=== PATIENT | male | born 1935 | race Hispanic/Latino ===

== ENCOUNTER 2018-10-17 09:42 | Inpatient (IN) | payer MEDICARE, OTHER ==
[~2018-10-17] VITALS: Ht 175.3 cm; Wt 112.2 kg
[2018-10-17] MEDS ORDERED: SODIUM CHLORIDE 0.9% 1000ML 1,000 ML IV STA (09:45)
[2018-10-17 10:57] LABS: BASOPHILS % 0.4 % (0.0-1.0); EOSINOPHILS # (AUTO) 0.3 (0.0-0.4); EOSINOPHILS % 3.5 % (0.0-6.0); HEMATOCRIT 37.8 % (38.2-49.6); HEMOGLOBIN 13.2 g/dL (14.0-18.0); LYMPHOCYTES # (AUTO) 1.4 (1.0-3.2); LYMPHOCYTES % 16.4 % (18.0-39.1); MEAN CORPUSCULAR HEMOGLOBIN 34.4 pg (28-32); MEAN CORPUSCULAR HGB CONC 34.9 g/dL (31-35); MEAN CORPUSCULAR VOLUME 98.4 fL (81-99); MONOCYTES # (AUTO) 0.6 (0.2-0.8); MONOCYTES % 7.6 % (4.4-11.3); NEUTROPHILS % 71.7 % (38.7-80.0); PLATELET COUNT 177 x10e3/uL (140-360); RED BLOOD COUNT 3.84 x10e6/uL (4.3-5.7); RED CELL DISTRIBUTION WIDTH 12.1 % (11.7-14.4)
[2018-10-17 11:08] LABS: INR 0.96; PROTHROMBIN TIME 13.7 seconds (11.9-14.5)
[2018-10-17 11:09] LABS: PARTIAL THROMBOPLASTIN TIME 29.7 seconds (23.8-35.5)
[2018-10-17 11:18] LABS: ALBUMIN 3.4 g/dL (3.5-5.0); ALBUMIN/GLOBULIN RATIO 0.9 (0.8-2.0); ANION GAP 14.2 mmol/L (8-16); CALCIUM 9.1 mg/dL (8.4-10.2); CREATININE, SERUM 1.43 mg/dL (0.72-1.25); POTASSIUM 4.2 mmol/L (3.5-5.1)
[2018-10-17 11:21] LABS: CLARITY,URINE CLOUDY (CLEAR); COLOR,URINE RED (YELLOW); KETONES,URINE NEGATIVE (NEGATIVE); LEUKOCYTE ESTERASE ,URINE TRACE (NEGATIVE); NITRITE,URINE NEGATIVE (NEGATIVE); PROTEIN,URINE DIPSTICK 2+ (NEGATIVE)
[2018-10-17 11:22] LABS: BILIRUBIN,URINE NEGATIVE (NEGATIVE); URINE UROBILINOGEN 0.2 mg/dL (0.2 - 1)
[2018-10-17 11:41] LABS: RBC,URINE >50 /HPF (0-5); WBC,URINE (MAN) 0-5 /HPF (0-5)
[2018-10-17 11:42] LABS: EPITHELIAL CELLS,URINE RARE /LPF
[2018-10-17] MEDS ORDERED: SERTRALINE HCL50 MG PO (13:44)
[2018-10-17] MEDS ORDERED: CARVEDILOL25 MG PO (13:44)
[2018-10-17] MEDS ORDERED: FUROSEMIDE20 MG PO (13:44)
[2018-10-17] MEDS ORDERED: LEVOTHYROXINE175 MCG PO (13:44)
[2018-10-17] MEDS ORDERED: POTASSIUM CHLO20 ME1 PO (13:44)
[2018-10-17] MEDS ORDERED: FLUTICASONE PRO16 GM (13:44)
[2018-10-17] MEDS ORDERED: DONEPEZIL HCL10 MG PO (13:44)
[2018-10-17] MEDS ORDERED: PRAVASTATIN SOD40 MG PO (13:44)
[2018-10-17] MEDS ORDERED: AMLODIPINE BESYL5 MG PO (13:44)
[2018-10-17] MEDS ORDERED: TAMSULOSIN HCL0.4 MG PO (13:44)
[2018-10-17] MEDS ORDERED: ALPRAZOLAM0.25 MG PO (13:44)
[2018-10-17] MEDS ORDERED: ONDANSETRON HCL INJ 2 MG/ML VIAL IV PRN (13:45)
[2018-10-17] MEDS ORDERED: MORPHINE SULFATE 2 MG/ML SYR IV PRN (13:45)
[2018-10-17] MEDS ORDERED: CLOBETASOL PROP50 ML TOP (13:46)
[2018-10-17] MEDS ORDERED: MYRBETRIQ50 MG PO (13:46)
[2018-10-17] MEDS ORDERED: MEMANTINE PO (13:46)
[2018-10-17 19:20] VITALS: BP_SYST 136
[2018-10-17 19:54] LABS: CALCIUM 9.3 mg/dL (8.4-10.2); CREATININE, SERUM 1.38 mg/dL (0.72-1.25)
[2018-10-17] MEDS: ALPRAZOLAM 0.25 MG TAB PO SCH (21:00)
[2018-10-17 21:10] VITALS: BP 163/70
[2018-10-17 21:25] VITALS: BP 163/70
[2018-10-17] MEDS ORDERED: COLACE100 MG PO (21:38)
[2018-10-17] MEDS ORDERED: ACETAMINOPHEN325 M1 PO (21:38)
[2018-10-17] MEDS ORDERED: BUDESONIDE0.5 MG/2 M NEB (21:38)
[2018-10-17] MEDS ORDERED: COMBIVENT RESPIM4 GM IH (21:38)
[2018-10-17] MEDS ORDERED: IPRATROPIU0.2 MG/1 M NS (21:38)
[2018-10-17 23:48] VITALS: BP 161/70
[2018-10-18] VITALS (8 sets, daily range): BP systolic 110–150; BP diastolic 54–72
[2018-10-18] MEDS ORDERED: ACETAMINOPHEN 325 MG TAB PO PRN
[2018-10-18] MEDS ORDERED: DOCUSATE SODIUM 100 MG CAP PO PRN
[2018-10-18 05:56] LABS: BASOPHILS % 0.3 % (0.0-1.0); EOSINOPHILS # (AUTO) 0.3 (0.0-0.4); EOSINOPHILS % 3.4 % (0.0-6.0); HEMATOCRIT 32.9 % (38.2-49.6); HEMOGLOBIN 11.5 g/dL (14.0-18.0); LYMPHOCYTES # (AUTO) 1.3 (1.0-3.2); MEAN CORPUSCULAR HEMOGLOBIN 34.2 pg (28-32); MEAN CORPUSCULAR VOLUME 97.9 fL (81-99); MONOCYTES # (AUTO) 0.6 (0.2-0.8); MONOCYTES % 8.1 % (4.4-11.3); NEUTROPHILS # (AUTO) 5.6 (2.1-6.9); NEUTROPHILS % 70.7 % (38.7-80.0); PLATELET COUNT 171 x10e3/uL (140-360); RED BLOOD COUNT 3.36 x10e6/uL (4.3-5.7); RED CELL DISTRIBUTION WIDTH 12.1 % (11.7-14.4)
[2018-10-18 06:05] LABS: INR 1.02; PROTHROMBIN TIME 14.3 seconds (11.9-14.5)
[2018-10-18 06:06] LABS: PARTIAL THROMBOPLASTIN TIME 31.6 seconds (23.8-35.5)
[2018-10-18 06:18] LABS: ALBUMIN 2.8 g/dL (3.5-5.0); ALBUMIN/GLOBULIN RATIO 0.7 (0.8-2.0); ANION GAP 10.9 mmol/L (8-16); CALCIUM 8.9 mg/dL (8.4-10.2); CREATININE, SERUM 1.31 mg/dL (0.72-1.25); POTASSIUM 3.9 mmol/L (3.5-5.1)
[2018-10-18] MEDS: AMLODIPINE BESYLATE 5 MG TAB PO SCH (09:18)
[2018-10-18] MEDS: FUROSEMIDE 20 MG TAB PO SCH (09:18)
[2018-10-18] MEDS: FLUTICASONE PROPIONATE NASAL SPRAY NS SCH (10:42)
[2018-10-18] MEDS: HYDROCODONE/APAP 5MG-325MG TAB PO PRN ×2 (11:00→23:16)
[2018-10-18] MEDS: SERTRALINE HCL 50 MG TAB PO SCH (11:26)
[2018-10-18] MEDS: BUDESONIDE 0.5MG/2 ML NEB NEB SCH ×3 (11:30→20:15)
--- NOTE | 2018-10-18 15:29 | Consultation ---
DATE OF CONSULTATION: October 17, 2018 PULMONARY CONSULTATION HISTORY OF PRESENT ILLNESS: Mr. Rojo is an office patient of the [facility] with a history of obstructive sleep apnea and tracheomalacia, who was last seen in the office about a month ago for followup and also had some conjunctivitis and was treated with topical erythromycin and is doing better. He was in his usual state of health and planned to follow up in the office next week; however, he began Wednesday night with hematuria. He denies any pain. He denies any shortness of breath. He denies any new cough, sputum or secretions. Normally he uses a CPAP 12 cm of water for sleep and p.r.n. He also uses nebulized budesonide and DuoNeb. At this point he denies any other pains. REVIEW OF SYSTEMS: Notable for swelling of the lower extremities. PAST MEDICAL HISTORY: Includes pneumonias in the past, hypertension, tracheomalacia, hypothyroidism, sleep apnea, osteoporosis, Alzheimer's dementia, dysphagia, gastroesophageal reflux, prostate cancer. FAMILY HISTORY: Noncontributory. SOCIAL HISTORY: He used to smoke. He lives with his son, who is his director of housing. DRUG ALLERGIES: NONE. PHYSICAL EXAMINATION VITAL SIGNS: Temperature is 97.2. Heart rate is 58. Blood pressure 110/54. He is 94% on room air. GENERAL APPEARANCE: This is an obese man sitting in the wheelchair. He is awake, alert. He is pleasant. HEENT: His head is normocephalic. His mucous membranes are moist. NECK: Short and thick. CHEST: Clear to auscultation. HEART: Has a regular rate and rhythm without murmurs, rubs or gallops. ABDOMEN: Mildly obese. It is soft. It is nontender, nondistended. There is no flank pain. He does have a Mortensen catheter with hematuria. EXTREMITIES: Have trace edema. LABORATORY DATA: Last labs notable for a creatinine of 1.31. White count is 7.89. Hemoglobin and hematocrit are 11 and 32 with 171,000 platelets. Coags are normal. LFTs are normal. ASSESSMENT 1. Obstructive sleep apnea. 2. Tracheobronchial malacia. 3. Chronic obstructive pulmonary disease. 4. Hematuria. 5. Lower extremity edema. 6. Dementia. RECOMMENDATIONS AND PLAN: He can use his home CPAP at night for sleep and p.r.n. If it is unavailable, he uses 12 cm of water pressure. This has been ordered in the computer. I have also spoken at length with his son, Raul, to bring his machine. He states he is able to bring it. We will continue his nebulized bronchodilators with Pulmicort and DuoNeb. He can use an Acapella as needed for airway clearance. Continue ambulation since he is not a candidate for DVT chemoprophylaxis secondary to hematuria. We will also get bilateral lower extremity venous Dopplers since the swelling is new. He has a urologic consultation pending. It is likely he is going to need cystoscopy. At this point, he may proceed with cystoscopy from a pulmonary point of view. He does need to be recovered with a CPAP due to the tracheomalacia and sleep apnea. The patient was seen, examined and discussed with the nurse and family. Job#: [id number] EV
[2018-10-18] MEDS ORDERED: NON-FORMULARY MEDICATION (Pravastatin Sodium 1 TAB) PO SCH (17:00)
[2018-10-18] MEDS: CARVEDILOL 12.5 MG TAB PO SCH (17:00)
[2018-10-18] MEDS: (Mirabegron (Myrbetriq) 1 TAB) PO SCH (17:00)
[2018-10-18] MEDS ORDERED: NON-FORMULARY MEDICATION (Carvedilol 25 MG) PO SCH (17:00)
[2018-10-18] MEDS: TAMSULOSIN HCL 0.4 MG CAP PO SCH (17:56)
[2018-10-18] MEDS ORDERED: BUDESONIDE 0.5MG/2 ML NEB INH SCH (19:00)
[2018-10-18] MEDS: ALBUTEROL/IPRATROPIUM 3 ML NEB NEB SCH (20:15)
[2018-10-18] MEDS ORDERED: BELLADONNA/OPIUM 60 MG SUPP PR PRN (20:15)
[2018-10-18] MEDS: CLOBETASOL PROPIONATE TOP SCH (21:00)
[2018-10-18] MEDS: CEFTRIAXONE SOD 1 GM VIAL IV SCH (21:39)
[2018-10-18] MEDS: ALPRAZOLAM 0.25 MG TAB PO SCH (21:40)
[2018-10-18] MEDS: DONEPEZIL HCL 5 MG TAB PO SCH (21:40)
[2018-10-18] MEDS: PRAVASTATIN 20 MG TAB PO SCH (21:40)
[2018-10-18 21:47] LABS: BILIRUBIN,URINE NEGATIVE (NEGATIVE); CLARITY,URINE SL CLOUDY (CLEAR); COLOR,URINE YELLOW (YELLOW); KETONES,URINE NEGATIVE (NEGATIVE); LEUKOCYTE ESTERASE ,URINE 2+ (NEGATIVE); NITRITE,URINE NEGATIVE (NEGATIVE); PROTEIN,URINE DIPSTICK 2+ (NEGATIVE); URINE UROBILINOGEN 0.2 mg/dL (0.2 - 1)
[2018-10-18 21:51] LABS: BACTERIA,URINE FEW /HPF; RBC,URINE >50 /HPF (0-5)
[2018-10-19] VITALS (8 sets, daily range): BP systolic 116–168; BP diastolic 50–70
[2018-10-19] MEDS: ALBUTEROL/IPRATROPIUM 3 ML NEB NEB SCH ×4 (01:20→19:56)
[2018-10-19 05:58] LABS: BASOPHILS % 0.4 % (0.0-1.0); EOSINOPHILS # (AUTO) 0.3 (0.0-0.4); EOSINOPHILS % 4.3 % (0.0-6.0); HEMATOCRIT 33.9 % (38.2-49.6); HEMOGLOBIN 11.4 g/dL (14.0-18.0); LYMPHOCYTES # (AUTO) 1.1 (1.0-3.2); LYMPHOCYTES % 15.4 % (18.0-39.1); MEAN CORPUSCULAR HEMOGLOBIN 33.1 pg (28-32); MEAN CORPUSCULAR HGB CONC 33.6 g/dL (31-35); MEAN CORPUSCULAR VOLUME 98.5 fL (81-99); MONOCYTES # (AUTO) 0.6 (0.2-0.8); NEUTROPHILS # (AUTO) 4.9 (2.1-6.9); NEUTROPHILS % 70.3 % (38.7-80.0); PLATELET COUNT 164 x10e3/uL (140-360); RED BLOOD COUNT 3.44 x10e6/uL (4.3-5.7); RED CELL DISTRIBUTION WIDTH 11.9 % (11.7-14.4)
[2018-10-19] MEDS: LEVOTHYROXINE SODIUM 100 MCG TAB PO SCH (06:00)
[2018-10-19] MEDS: LEVOTHYROXINE SODIUM 75 MCG TAB PO SCH (06:00)
[2018-10-19 06:15] LABS: CALCIUM 8.5 mg/dL (8.4-10.2); CREATININE, SERUM 1.5 mg/dL (0.72-1.25)
[2018-10-19] MEDS: BUDESONIDE 0.5MG/2 ML NEB NEB SCH ×2 (07:00→19:56)
--- NOTE | 2018-10-19 08:57 | Progress Note ---
DATE: October 19, 2018 Mr. Rojo is an 83-year-old man with a history of dementia, hypertension, prostate cancer, hypothyroidism, tracheomalacia, came to the emergency room complaining of gross hematuria and some urinary incontinence. He was seen by urologist. He is going to go for cystoscopy today. PHYSICAL EXAMINATION GENERAL: He is awake and alert. VITALS: Temperature is 98.2, blood pressure 129/50. HEART: Regular rate. LUNGS: Poor inspiratory effort. ABDOMEN: Distended and soft. BLOOD WORK: Potassium 4, creatinine is 1.5, glucose 116. White count 7.01, hemoglobin 11.4, hematocrit 33.9. Doppler of the lower extremities apparently so far has been negative as per preliminary report. ASSESSMENT AND PLAN 1. Hematuria. 2. History of prostate cancer. 3. Hypertension. 4. Dementia. 5. Cerebrovascular accident. 6. Tracheomalacia. 7. Sleep apnea. 8. CPAP dependence. PLAN: At the present time, is to continue neb treatments. Continue treating hypertension. Continue all the other home medications. The patient is going to go for cystoscopy today. The urine culture is still pending. Will continue with IV Rocephin 1 g every 24 hours. All of this was discussed with the patient. All questions were answered to satisfaction. Job#: [id number] CHANELL
[2018-10-19] MEDS ORDERED: NON-FORMULARY MEDICATION (Donepezil Hcl 10 MG) PO SCH (09:00)
[2018-10-19] MEDS: CARVEDILOL 12.5 MG TAB PO SCH ×2 (09:00→15:47)
[2018-10-19] MEDS ORDERED: ALPRAZOLAM 0.25 MG TAB PO SCH (09:00)
[2018-10-19] MEDS ORDERED: NON-FORMULARY MEDICATION (Levothyroxine Sodium 175 MCG) PO SCH (09:00)
--- NOTE | 2018-10-19 11:41 | Diagnostic Imaging Report ---
CT Abdomen and Pelvis without contrast INDICATION: Lower abdominal pain for several days, history of prostate cancer TECHNIQUE: Thin collimation axial images obtained from the diaphragm to the level of the pubic symphysis without nonionic intravenous contrast. Dose reduction techniques used: Automated exposure control, adjustment of the mAs and/or kVp according to patient size, standardized low-dose protocol, and/or iterative reconstruction technique. RADIATION DOSE: Total DLP: 776.7 mGy*cm Estimated effective dose: (DLP x 0.015 x size factor) mSv CTDIvol has been reviewed. It is below the limits set by the Radiation Protocol Committee (RPC). COMPARISON: None. ABDOMEN FINDINGS: Lung Bases: The lungs are diffusely hyperinflated. There is atelectasis in the posterior costophrenic angles. No pleural effusions. There is prominence of the epicardial fat pads. The heart is normal in size and contains calcifications of the aorta, mitral valve, and coronary arteries. Liver: Diffusely decreased attenuation without mass. Gallbladder: Present and appears normal. No ductal dilatation. Pancreas: Diffuse fatty atrophy. No mass or ductal dilatation. Spleen: Normal size without mass. Adrenal Glands: No evidence for mass. Kidneys: Right: No renal calculus. Low attenuating lesion in the upper pole measures 14 mm and 4 Hounsfield units consistent with a cyst. Low attenuating lesion in the lower pole measures 1.1 x 1.3 cm. There is suggestion of peripheral calcifications. No hydronephrosis. Left: No renal calculus. There is fullness of the upper pole collecting system suggestive of parapelvic cyst. This measures 1.7 x 1.7 cm. No collecting system dilatation. Lymph Nodes: No enlarged abdominal or retroperitoneal lymph nodes. Aorta: Diffusely calcified and mildly ectatic. Maximum aortic diameter is 2.3 cm. PELVIS FINDINGS: Bowel: Stomach: Collapsed but otherwise normal.. Small Bowel: Normal in caliber with normal wall thickness. Large Bowel: Diverticulosis coli. No associated inflammation. Appendix: Not visualized and may be absent or collapsed. Bladder: Collapsed around a Mortensen catheter. The herndon are diffusely thickened. Diffuse perivesicular inflammation with inflammation extending to the anterior abdominal wall. No evidence of air or associated fluid collection. Ureters: No ureteral dilatation or calculus. No free fluid or fluid collection.. Bones: Mild to moderate degenerative changes of the lower thoracic and lower lumbar spine. No compression deformity or listhesis. No destructive lesions. Soft tissues: Unremarkable. IMPRESSION: 1. Suspected parapelvic cyst in the upper pole of the left kidney. Recommend confirmation with renal ultrasound. Renal ultrasound can also confirm the presence of mural calcifications in a lower pole cyst in the right kidney. No evidence of renal calculus or obstructive uropathy. 2. Circumferential bladder wall thickening or perivesicular inflammation. Please correlate for signs/symptoms of cystitis. Tumor invasion by prostate cancer cannot be excluded on this unenhanced examination. 3. Diverticulosis coli. No evidence for bowel obstruction or inflammation. 4. Steatosis. Signed by: Dr. Marcelo Perez MD on 10/19/2018 11:37 AM
[2018-10-19] MEDS ORDERED: BELLADONNA/OPIUM 60 MG SUPP PR ONE (12:18)
[2018-10-19] MEDS ORDERED: IOPAMIDOL 610MG/1ML 300 MG/ML VIAL IV ONE (12:19)
[2018-10-19] MEDS: FLUTICASONE PROPIONATE NASAL SPRAY NS SCH (15:45)
[2018-10-19] MEDS: MEMANTINE 28 MG PO SCH (15:45)
[2018-10-19] MEDS: POTASSIUM CHLORIDE 20 MEQ TAB CR PO SCH (15:46)
[2018-10-19] MEDS: FUROSEMIDE 20 MG TAB PO SCH (15:46)
[2018-10-19] MEDS: AMLODIPINE BESYLATE 5 MG TAB PO SCH (15:46)
[2018-10-19] MEDS: SERTRALINE HCL 50 MG TAB PO SCH (15:47)
[2018-10-19] MEDS: (Mirabegron (Myrbetriq) 1 TAB) PO SCH (17:35)
[2018-10-19] MEDS: TAMSULOSIN HCL 0.4 MG CAP PO SCH (17:35)
[2018-10-19] MEDS: HYDROCODONE/APAP 5MG-325MG TAB PO PRN (17:45)
[2018-10-19] MEDS ORDERED: ONDANSETRON HCL INJ 2 MG/ML VIAL ONE (17:46)
[2018-10-19] MEDS ORDERED: DEXAMETHASONE SOD PHOS INJ 4 MG/ML VIAL ONE (17:46)
[2018-10-19] MEDS ORDERED: PROPOFOL IV EMULSION 10 MG/ML 20 ML VIAL ONE (17:46)
[2018-10-19] MEDS ORDERED: FENTANYL CITRATE/PF 100MCG/2 ML INJ ONE (17:50)
[2018-10-19] MEDS: CLOBETASOL PROPIONATE TOP SCH (20:42)
[2018-10-19] MEDS: PRAVASTATIN 20 MG TAB PO SCH (20:42)
[2018-10-19] MEDS: DONEPEZIL HCL 5 MG TAB PO SCH (20:42)
[2018-10-19] MEDS: ALPRAZOLAM 0.25 MG TAB PO SCH (20:42)
[2018-10-19] MEDS: CEFTRIAXONE SOD 1 GM VIAL IV SCH (20:42)
[2018-10-20] VITALS: BP 124/58
--- NOTE | 2018-10-20 00:07 | Operative Report ---
DATE OF PROCEDURE: October 19, 2018 PREOPERATIVE DIAGNOSIS: Gross hematuria. POSTOPERATIVE DIAGNOSIS: Gross hematuria. OPERATIONS PERFORMED 1. Cystourethroscopy with bilateral ureteral catheterization and retrograde ureteropyelography. 2. Interpretation of retrograde ureteropyelography. ANESTHESIA: General. COMPLICATIONS: None. CLINICAL SUMMARY: Reed Rojo is an 83-year-old man who has undergone radiotherapy for clinically localized prostate cancer. The patient has also had BPH and has undergone TURP. Patient has had gross hematuria and is brought for evaluation. He as well as the son are well aware of the risks of bleeding, infection, injury to adjacent structures, and the significantly increased risk of any form of anesthetic procedure in the elderly. They understood all these risks and elected to proceed. OPERATIVE PROCEDURE IN DETAIL: Informed consent was verified. Reed Rojo was properly identified, taken to the operating room, placed on the cystoscopy table in supine position. Anesthesia was uneventfully begun. The patient's Mortensen catheter was removed, and the patient was carefully and gently re-positioned in dorsal lithotomy position with all pressure points well padded. His genitalia were prepared and draped in usual sterile fashion. The 22.5-Greenlandic cystoscope sheath with the visual obturator in place was atraumatically inserted in the patient's urethra. It was guided down the unremarkable urethra past a normal sphincteric region through the prostate bed which was relatively open being status post transurethral resection of the prostate. There was some erythema of the prostatic bed and some friability of the proximal portion of the prostate bed. 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 There was no evidence of active bleeding at this time. Normally positioned and configured ureteral orifices were identified. The right ureteral orifice was exiting through a patch of erythema along the right side of the trigone. An 8-Greenlandic catheter was used to cannulate each ureter and retrograde ureteropyelograms were performed. Interpretation of retrograde ureteropyelography: Contrast was instilled in retrograde fashion bilaterally. There were no tumors, no stones, and no diverticula. Unobstructed drainage was observed bilaterally fluoroscopically. J-hooking was noted. The patient's bladder was drained. The cystoscope was withdrawn. The patient was uneventfully reversed from anesthesia and taken to the recovery room in stable condition. There were no complications of the procedure. He tolerated the procedure well. Plans will be to have the patient undergo serial urine. Will maintain him off of any type of blood thinners and any type of antiplatelet drugs. We will re-examine him during this hospitalization and of course we will follow him in the long-term. Job#: [id number] CF cc:SIDRA RUBALCAVA MD
[2018-10-20] MEDS: ALBUTEROL/IPRATROPIUM 3 ML NEB NEB SCH ×3 (01:45→12:54)
[2018-10-20 04:00] VITALS: BP 162/71
[2018-10-20 05:55] LABS: BASOPHILS % 0.5 % (0.0-1.0); EOSINOPHILS # (AUTO) 0.4 (0.0-0.4); EOSINOPHILS % 5.6 % (0.0-6.0); HEMATOCRIT 33.7 % (38.2-49.6); HEMOGLOBIN 11.5 g/dL (14.0-18.0); LYMPHOCYTES # (AUTO) 0.9 (1.0-3.2); LYMPHOCYTES % 13.9 % (18.0-39.1); MEAN CORPUSCULAR HEMOGLOBIN 33.9 pg (28-32); MEAN CORPUSCULAR HGB CONC 34.1 g/dL (31-35); MEAN CORPUSCULAR VOLUME 99.4 fL (81-99); MONOCYTES # (AUTO) 0.5 (0.2-0.8); MONOCYTES % 8.7 % (4.4-11.3); NEUTROPHILS # (AUTO) 4.4 (2.1-6.9); NEUTROPHILS % 70.7 % (38.7-80.0); PLATELET COUNT 155 x10e3/uL (140-360); RED BLOOD COUNT 3.39 x10e6/uL (4.3-5.7)
[2018-10-20] MEDS: LEVOTHYROXINE SODIUM 100 MCG TAB PO SCH (05:56)
[2018-10-20] MEDS: LEVOTHYROXINE SODIUM 75 MCG TAB PO SCH (05:56)
[2018-10-20 06:22] LABS: ANION GAP 11.1 mmol/L (8-16); CALCIUM 8.6 mg/dL (8.4-10.2); CREATININE, SERUM 1.5 mg/dL (0.72-1.25); POTASSIUM 4.1 mmol/L (3.5-5.1)
[2018-10-20] MEDS: BUDESONIDE 0.5MG/2 ML NEB NEB SCH (07:06)
[2018-10-20 08:31] VITALS: BP 158/72
[2018-10-20] MEDS: AMLODIPINE BESYLATE 5 MG TAB PO SCH (09:20)
[2018-10-20] MEDS: SERTRALINE HCL 50 MG TAB PO SCH (09:20)
[2018-10-20] MEDS: FLUTICASONE PROPIONATE NASAL SPRAY NS SCH (09:20)
[2018-10-20] MEDS: MEMANTINE 28 MG PO SCH (09:20)
[2018-10-20] MEDS: CARVEDILOL 12.5 MG TAB PO SCH (09:20)
[2018-10-20] MEDS: POTASSIUM CHLORIDE 20 MEQ TAB CR PO SCH (09:20)
[2018-10-20] MEDS: ALPRAZOLAM 0.25 MG TAB PO SCH (09:20)
[2018-10-20] MEDS: FUROSEMIDE 20 MG TAB PO SCH (09:20)
[2018-10-20] MEDS ORDERED: CIPRO500 MG PO (12:30)
[2018-10-20 12:50] VITALS: BP 166/73
--- NOTE | 2018-10-20 17:19 | Discharge Summary ---
HOSPITAL COURSE: Mr. Rojo is an 83-year-old man with history of dementia, hypertension, prostate cancer, hypothyroidism, tracheomalacia. Came to the emergency room complaining of gross hematuria and incontinence. He was seen by Dr. Calderon. Had a procedure done yesterday, and the plan is to discharge him home today on p.o. antibiotics. PHYSICAL EXAM: GENERAL: Today he is sitting out of bed, eating breakfast. He is feeling fine. VITAL SIGNS: Temperature 97.3, blood pressure 158/72. HEART: Regular rate. LUNGS: Clear to auscultation. ABDOMEN: Soft. BLOOD WORK: White count 6.24, hemoglobin 11.5, hematocrit 33.7. Potassium 4.1, creatinine is 1.50. Glucose 108. Coagulation normal. Urine culture shows gram-negative bacillus in the urine. Identification and susceptibility are to follow. Had an abdominal and pelvic CT that shows parapelvic cystic in the upper lobe of the left kidney, circumferential bladder wall thickening and perivesicular inflammation, diverticulosis coli, and steatosis. DISCHARGE DIAGNOSES: 1. Hematuria. 1. History of prostate cancer. 2. Hypertension. 3. Dementia. 4. History of cerebrovascular accident. 5. Sleep apnea. 6. Continuous positive airway pressure dependence. 7. Tracheomalacia. The patient had a cystourethroscopy with bilateral retrograde catheterization and retrograde ureteropyelography. Interpretation of the retrograde ureteropyelography done. There were no complications on this procedure. Patient is going to be discharged home off blood thinners for 2 or 3 weeks, meaning off of aspirin and Plavix or any type of antiplatelet drugs. He needs followup with Dr. Calderon as directed by him, followup with his PCP in 1 week. He is to hold aspirin and Plavix, continue other home medications, and we are going to put him on Cipro 500 mg twice a day for 7 more days. He is to call me or come back to the emergency room if any recurrent problem. Job#: [id number] ADELA
== END 2018-10-20 13:52 | disposition home or self-care (01) | DRG 699 ==
LOC: ER 09:42 → ERHOLD 13:45 → MED/SURG 21:04
PROVIDERS: ADMIT Internal Medicine; ATTEND Internal Medicine
PROC: BT141ZZ Fluoroscopy of Kidneys, Ureters and Bladder using Low Osmolar Contrast (ICD-10-PCS; 2018-10-19)
PROC: 0T788ZZ Dilation of Bilateral Ureters, Via Natural or Artificial Opening Endoscopic (ICD-10-PCS; principal; 2018-10-19 11:00)
DX: N30.41 Irradiation cystitis with hematuria (principal); E87.0 Hyperosmolality and hypernatremia; N28.1 Cyst of kidney, acquired; Z85.46 Personal history of malignant neoplasm of prostate; Z86.73 Personal history of transient ischemic attack (TIA), and cerebral infarction without residual deficits; J39.8 Other specified diseases of upper respiratory tract; G47.33 Obstructive sleep apnea (adult) (pediatric); E66.9 Obesity, unspecified; Z68.36 Body mass index [BMI] 36.0-36.9, adult; E03.9 Hypothyroidism, unspecified; I12.9 Hypertensive chronic kidney disease with stage 1 through stage 4 chronic kidney disease, or unspecified chronic kidney disease; N18.9 Chronic kidney disease, unspecified; H10.9 Unspecified conjunctivitis; M81.0 Age-related osteoporosis without current pathological fracture; G30.9 Alzheimer's disease, unspecified; F02.80 Dementia in other diseases classified elsewhere, unspecified severity, without behavioral disturbance, psychotic disturbance, mood disturbance, and anxiety; Z87.891 Personal history of nicotine dependence
CPT/HCPCS: 36415; 74176; 74420; 80048; 80053; 81001; 85025; 85610; 85730; 87086; 87186; 93005; 93970; 94640; 99284; J0696; J1100; J2270; J2405; J7030

== ENCOUNTER → 2018-11-18 | Outpatient (CLI) | payer MEDICARE, OTHER ==
[~2018-11-18] MED LIST: ACETAMINOPHEN325 M1 PO; ALPRAZOLAM0.25 MG PO; AMLODIPINE BESYL5 MG PO; BUDESONIDE0.5 MG/2 M NEB; CARVEDILOL25 MG PO; CIPRO500 MG PO; CLOBETASOL PROP50 ML TOP; COLACE100 MG PO; COMBIVENT RESPIM4 GM IH; DONEPEZIL HCL10 MG PO; FLUTICASONE PRO16 GM; FUROSEMIDE20 MG PO; IPRATROPIU0.2 MG/1 M NS; LEVOTHYROXINE175 MCG PO; MEMANTINE PO; MYRBETRIQ50 MG PO; POTASSIUM CHLO20 ME1 PO; PRAVASTATIN SOD40 MG PO; SERTRALINE HCL50 MG PO; TAMSULOSIN HCL0.4 MG PO
--- NOTE | 2018-11-18 15:44 | Diagnostic Imaging Report ---
EXAMINATION: CHEST 2 VIEWS COMPARISON: CT Abdomen/Pelvis 10/19/18. FINDINGS: TUBES and LINES: None. LUNGS: Lungs are well inflated. Linear subsegmental atelectasis in the left lung. Mild central vascular congestion. No evidence of lobar consolidation. PLEURA: No pleural effusion or pneumothorax. HEART AND MEDIASTINUM: The cardiomediastinal silhouette is unremarkable. BONES AND SOFT TISSUES: No acute osseous lesion. Soft tissues are unremarkable. UPPER ABDOMEN: No free air under the diaphragm. IMPRESSION: Mild central vascular congestion without pulmonary edema. Signed by: Dr. Miriam Bartlett MD on 11/18/2018 3:41 PM
== END ==
LOC: RAD 14:09
PROVIDERS: ATTEND Family Medicine
DX: Z01.811 Encounter for preprocedural respiratory examination (principal)
CPT/HCPCS: 71046

== ENCOUNTER → 2018-11-21 | Outpatient (RCR) | payer MEDICARE, OTHER | LOC: WCC 11-17 08:46 | PROVIDERS: ATTEND Family Medicine | DX: N30.41 Irradiation cystitis with hematuria (principal); R31.9 Hematuria, unspecified; D04.8 Carcinoma in situ of skin of other sites; I69.951 Hemiplegia and hemiparesis following unspecified cerebrovascular disease affecting right dominant side; I10 Essential (primary) hypertension; E03.9 Hypothyroidism, unspecified; E78.5 Hyperlipidemia, unspecified; H91.23 Sudden idiopathic hearing loss, bilateral; J44.9 Chronic obstructive pulmonary disease, unspecified; N40.0 Benign prostatic hyperplasia without lower urinary tract symptoms; Y84.8 Other medical procedures as the cause of abnormal reaction of the patient, or of later complication, without mention of misadventure at the time of the procedure | CPT/HCPCS: 99203; G0277 ==

== ENCOUNTER → 2018-12-22 | Outpatient (RCR) | payer MEDICARE, OTHER | LOC: WCC 11-23 09:04 | PROVIDERS: ATTEND Family Medicine | DX: N30.41 Irradiation cystitis with hematuria (principal); R31.9 Hematuria, unspecified; D04.8 Carcinoma in situ of skin of other sites; E03.9 Hypothyroidism, unspecified; E78.5 Hyperlipidemia, unspecified; H91.23 Sudden idiopathic hearing loss, bilateral; I10 Essential (primary) hypertension; I69.951 Hemiplegia and hemiparesis following unspecified cerebrovascular disease affecting right dominant side; J44.9 Chronic obstructive pulmonary disease, unspecified; N40.0 Benign prostatic hyperplasia without lower urinary tract symptoms; Y84.8 Other medical procedures as the cause of abnormal reaction of the patient, or of later complication, without mention of misadventure at the time of the procedure; Z01.811 Encounter for preprocedural respiratory examination | CPT/HCPCS: G0277 ×20 ==

== ENCOUNTER 2019-01-04 12:44 | Outpatient (RCR) | payer MEDICARE, OTHER | END 2019-01-19 | LOC: WCC 12:44 | PROVIDERS: ATTEND Family Medicine | DX: N30.41 Irradiation cystitis with hematuria (principal); Y84.8 Other medical procedures as the cause of abnormal reaction of the patient, or of later complication, without mention of misadventure at the time of the procedure; R31.9 Hematuria, unspecified; N40.0 Benign prostatic hyperplasia without lower urinary tract symptoms; J44.9 Chronic obstructive pulmonary disease, unspecified; I69.951 Hemiplegia and hemiparesis following unspecified cerebrovascular disease affecting right dominant side; I10 Essential (primary) hypertension; H91.23 Sudden idiopathic hearing loss, bilateral; E78.5 Hyperlipidemia, unspecified; E03.9 Hypothyroidism, unspecified; D04.8 Carcinoma in situ of skin of other sites; Z01.811 Encounter for preprocedural respiratory examination | CPT/HCPCS: G0277 ×9 ==

== ENCOUNTER → 2019-04-14 | Outpatient (CLI) | payer MEDICARE, OTHER ==
--- NOTE | 2019-04-14 14:27 | Diagnostic Imaging Report ---
EXAMINATION: Renal ultrasound. CLINICAL HISTORY :Renal failure COMPARISON: CT abdomen and pelvis without contrast 10/19/2018 TECHNIQUE: Grayscale and color Doppler evaluation of the kidneys and bladder was performed in transverse and longitudinal planes. DISCUSSION: RIGHT KIDNEY: The right kidney measures 10.1 cm in length and shows normal echogenicity. No hydronephrosis, shadowing calculi or solid mass lesions. LEFT KIDNEY: The left kidney measures 11 cm in length and shows normal echogenicity. Upper pole parenchymal cyst measures 1.7 x 1.1 x 1.6 cm, similar to that seen on comparison CT. No solid mass or hydronephrosis. BLADDER: Small volume. Ureteral jets are not identified, likely related to scan timing. IMPRESSION: Simple left renal cyst. Otherwise unremarkable sonographic appearance of the kidneys. Signed by: Dr. Robert Argueta M.D. on 04/14/2019 2:23 PM
== END ==
LOC: US 11:37
PROVIDERS: ATTEND Internal Medicine Nephrology
DX: N19 Unspecified kidney failure (principal); N28.1 Cyst of kidney, acquired
CPT/HCPCS: 76770; 76857

== ENCOUNTER → 2019-06-21 | Outpatient (RCR) | payer MEDICARE, OTHER | LOC: WCC 09:10 | PROVIDERS: ATTEND Family Medicine | DX: N30.41 Irradiation cystitis with hematuria (principal); Y84.8 Other medical procedures as the cause of abnormal reaction of the patient, or of later complication, without mention of misadventure at the time of the procedure; D04.8 Carcinoma in situ of skin of other sites; I10 Essential (primary) hypertension; I69.951 Hemiplegia and hemiparesis following unspecified cerebrovascular disease affecting right dominant side; J44.9 Chronic obstructive pulmonary disease, unspecified; N40.0 Benign prostatic hyperplasia without lower urinary tract symptoms; R31.9 Hematuria, unspecified; E03.9 Hypothyroidism, unspecified; E78.5 Hyperlipidemia, unspecified; H91.23 Sudden idiopathic hearing loss, bilateral; Z01.811 Encounter for preprocedural respiratory examination ==

== ENCOUNTER → 2019-07-12 | Outpatient (CLI) | payer MEDICARE, OTHER ==
--- NOTE | 2019-07-12 15:32 | Diagnostic Imaging Report ---
Chest, 2 views, 07/12/2019. History: Preop, hyperbaric chamber. Comparison: 11/18/2018. Findings: The cardiomediastinal silhouette and pulmonary vasculature are within normal limits. The lungs are clear without evidence of consolidation or pleural effusion. Degenerative changes are noted throughout the thoracic spine. There are no acute osseous or soft tissue abnormalities. Impression: No acute cardiopulmonary abnormality. Signed by: Fran Spaulding on 07/12/2019 3:29 PM
== END ==
LOC: RAD 13:56
PROVIDERS: ATTEND Family Medicine
DX: Z01.810 Encounter for preprocedural cardiovascular examination (principal)
CPT/HCPCS: 71046; 93005

== ENCOUNTER 2019-07-21 14:08 | Outpatient (RCR) | payer MEDICARE, OTHER | END 2019-07-22 | LOC: WCC 14:08 | PROVIDERS: ATTEND Family Medicine | DX: D04.8 Carcinoma in situ of skin of other sites (principal); Y84.8 Other medical procedures as the cause of abnormal reaction of the patient, or of later complication, without mention of misadventure at the time of the procedure; N30.41 Irradiation cystitis with hematuria; N40.0 Benign prostatic hyperplasia without lower urinary tract symptoms; I10 Essential (primary) hypertension; E03.9 Hypothyroidism, unspecified; E78.5 Hyperlipidemia, unspecified; H91.23 Sudden idiopathic hearing loss, bilateral; I69.951 Hemiplegia and hemiparesis following unspecified cerebrovascular disease affecting right dominant side; J44.9 Chronic obstructive pulmonary disease, unspecified; Z01.810 Encounter for preprocedural cardiovascular examination; Z01.811 Encounter for preprocedural respiratory examination | CPT/HCPCS: G0277 ×4 ==

== ENCOUNTER 2019-08-18 11:25 | Outpatient (RCR) | payer MEDICARE, OTHER | END 2019-08-21 | disposition still patient (30) | LOC: WCC 11:25 | PROVIDERS: ATTEND Family Medicine | DX: N30.41 Irradiation cystitis with hematuria (principal); Y84.8 Other medical procedures as the cause of abnormal reaction of the patient, or of later complication, without mention of misadventure at the time of the procedure; D04.8 Carcinoma in situ of skin of other sites; E03.9 Hypothyroidism, unspecified; E78.5 Hyperlipidemia, unspecified; H91.23 Sudden idiopathic hearing loss, bilateral; I10 Essential (primary) hypertension; I69.951 Hemiplegia and hemiparesis following unspecified cerebrovascular disease affecting right dominant side; J44.9 Chronic obstructive pulmonary disease, unspecified; N40.0 Benign prostatic hyperplasia without lower urinary tract symptoms; Z01.810 Encounter for preprocedural cardiovascular examination; Z01.811 Encounter for preprocedural respiratory examination | CPT/HCPCS: 36415; 82948; G0277 ×17 ==

== ENCOUNTER 2019-08-31 12:03 | Outpatient (RCR) | payer MEDICARE, OTHER | END 2019-09-21 | LOC: WCC 12:03 | PROVIDERS: ATTEND Family Medicine | DX: N30.41 Irradiation cystitis with hematuria (principal); Y84.8 Other medical procedures as the cause of abnormal reaction of the patient, or of later complication, without mention of misadventure at the time of the procedure; E03.9 Hypothyroidism, unspecified; E78.5 Hyperlipidemia, unspecified; H91.23 Sudden idiopathic hearing loss, bilateral; I10 Essential (primary) hypertension; I69.951 Hemiplegia and hemiparesis following unspecified cerebrovascular disease affecting right dominant side; J44.9 Chronic obstructive pulmonary disease, unspecified; N40.0 Benign prostatic hyperplasia without lower urinary tract symptoms; Z01.810 Encounter for preprocedural cardiovascular examination; Z01.811 Encounter for preprocedural respiratory examination | CPT/HCPCS: G0277 ×8 ==

== ENCOUNTER → 2020-05-13 | Outpatient (CLI) | payer MEDICARE, OTHER ==
--- NOTE | 2020-05-13 15:51 | Diagnostic Imaging Report ---
Modified Barium Swallow: Clinical History: Aspiration Comparison: None Fluoro time in minutes: 3.0 Radiation dose: 26.9 mGy air Kerma. Number of images: Multiple Report: The patient ingested thin, thick, barium and barium puree with a speech pathologist in attendance. Please see a focal report from speech pathology. Impression: Fluoroscopy provided to speech pathology for modified barium swallow examination. Signed by: Modesto Gates MD on 05/13/2020 3:48 PM
== END ==
LOC: DX 09:48
PROVIDERS: ATTEND Internal Medicine
DX: K11.7 Disturbances of salivary secretion (principal); R13.10 Dysphagia, unspecified; G30.1 Alzheimer's disease with late onset; F02.81 Dementia in other diseases classified elsewhere, unspecified severity, with behavioral disturbance; Z86.73 Personal history of transient ischemic attack (TIA), and cerebral infarction without residual deficits
CPT/HCPCS: 74230; 87635

== ENCOUNTER 2020-08-14 12:42 | Outpatient (RCR) | payer MEDICARE | END 2020-08-21 | LOC: ST 12:42 | PROVIDERS: ATTEND Internal Medicine | DX: R13.13 Dysphagia, pharyngeal phase (principal); G30.9 Alzheimer's disease, unspecified; F02.80 Dementia in other diseases classified elsewhere, unspecified severity, without behavioral disturbance, psychotic disturbance, mood disturbance, and anxiety ==

== ENCOUNTER 2020-09-13 13:00 | Outpatient (RCR) | payer MEDICARE | END 2020-09-21 | LOC: ST 13:00 | PROVIDERS: ATTEND Internal Medicine | DX: R13.13 Dysphagia, pharyngeal phase (principal); G30.9 Alzheimer's disease, unspecified; F02.80 Dementia in other diseases classified elsewhere, unspecified severity, without behavioral disturbance, psychotic disturbance, mood disturbance, and anxiety ==

== ENCOUNTER → 2020-09-13 | Outpatient (CLI) | payer MEDICARE | LOC: US 14:42 | PROVIDERS: ATTEND Urology | DX: N18.9 Chronic kidney disease, unspecified (principal); N28.1 Cyst of kidney, acquired | CPT/HCPCS: 76770 ==

== ENCOUNTER → 2020-09-18 | Outpatient (CLI) | payer MEDICARE | LOC: DX 13:06 | PROVIDERS: ATTEND Internal Medicine | DX: R13.10 Dysphagia, unspecified (principal); G30.9 Alzheimer's disease, unspecified; F02.80 Dementia in other diseases classified elsewhere, unspecified severity, without behavioral disturbance, psychotic disturbance, mood disturbance, and anxiety | CPT/HCPCS: 74230; 92526; 92611; U0002 ==

== ENCOUNTER 2020-10-16 12:00 | Outpatient (RCR) | payer MEDICARE | END 2020-10-21 | LOC: ST 12:00 | PROVIDERS: ATTEND Internal Medicine | DX: R13.13 Dysphagia, pharyngeal phase (principal); G30.9 Alzheimer's disease, unspecified; F02.80 Dementia in other diseases classified elsewhere, unspecified severity, without behavioral disturbance, psychotic disturbance, mood disturbance, and anxiety ==

== ENCOUNTER 2020-10-28 12:00 | Outpatient (RCR) | payer MEDICARE | END 2020-11-21 | LOC: ST 12:00 | PROVIDERS: ATTEND Internal Medicine | DX: R13.13 Dysphagia, pharyngeal phase (principal); G30.9 Alzheimer's disease, unspecified; F02.80 Dementia in other diseases classified elsewhere, unspecified severity, without behavioral disturbance, psychotic disturbance, mood disturbance, and anxiety ==

== ENCOUNTER → 2020-10-30 | Outpatient (CLI) | payer MEDICARE | LOC: DX 12:53 | PROVIDERS: ATTEND Internal Medicine | DX: R13.13 Dysphagia, pharyngeal phase (principal); G30.9 Alzheimer's disease, unspecified; F02.80 Dementia in other diseases classified elsewhere, unspecified severity, without behavioral disturbance, psychotic disturbance, mood disturbance, and anxiety | CPT/HCPCS: 74230; 92526; 92611; U0002 ==

== ENCOUNTER → 2020-12-24 | Outpatient (CLI) | payer MEDICARE ==
[~2020-12-24] MED LIST changes: +AZO URINARY P99.5 MG; +LEVOFLOXACIN250 MG PO; +MUCINEX600 MG PO; +RISPERIDONE0.5 MG PO
== END ==
LOC: CT 12:42
PROVIDERS: ATTEND Urology
DX: R31.0 Gross hematuria (principal); N20.0 Calculus of kidney
CPT/HCPCS: 74176

== ENCOUNTER 2020-12-25 18:23 | Inpatient (IN) | payer MEDICARE, OTHER ==
[~2020-12-25] VITALS: Ht 175.3 cm; Wt 112.0 kg
[~2020-12-25 18:23] MED LIST changes: -AZO URINARY P99.5 MG; -LEVOFLOXACIN250 MG PO; -MUCINEX600 MG PO; -RISPERIDONE0.5 MG PO
[2020-12-25] MEDS ORDERED: SODIUM CHLORIDE 0.9% 1000ML 1,000 ML IV ONE (18:31)
[2020-12-25 19:07] LABS: BASOPHILS # (AUTO) 0.1 (0.0-0.1); BASOPHILS % 0.3 % (0.0-1.0); EOSINOPHILS # (AUTO) 0.1 (0.0-0.4); EOSINOPHILS % 0.7 % (0.0-6.0); HEMATOCRIT 32.8 % (38.2-49.6); HEMOGLOBIN 10.9 g/dL (14.0-18.0); LYMPHOCYTES # (AUTO) 0.8 (1.0-3.2); LYMPHOCYTES % 4.5 % (18.0-39.1); MEAN CORPUSCULAR HEMOGLOBIN 33.6 pg (28-32); MEAN CORPUSCULAR HGB CONC 33.2 g/dL (31-35); MEAN CORPUSCULAR VOLUME 101.2 fL (81-99); MONOCYTES # (AUTO) 1.5 (0.2-0.8); MONOCYTES % 8.6 % (4.4-11.3); NEUTROPHILS # (AUTO) 14.5 (2.1-6.9); NEUTROPHILS % 84.7 % (38.7-80.0); PLATELET COUNT 129 x10e3/uL (140-360); RED BLOOD COUNT 3.24 x10e6/uL (4.3-5.7); RED CELL DISTRIBUTION WIDTH 12.8 % (11.7-14.4)
[2020-12-25 19:24] LABS: ALANINE AMINOTRANSFERASE 30 IU/L (0-55); ALBUMIN 2.2 g/dL (3.5-5.0); ALBUMIN/GLOBULIN RATIO 0.4 (0.8-2.0); ALKALINE PHOSPHATASE 213 IU/L (40-150); ANION GAP 19.2 mmol/L (8-16); BLOOD UREA NITROGEN 76 mg/dL (7-26); BUN/CREATININE RATIO 18 (6-25); CALCIUM 8.4 mg/dL (8.4-10.2); CARBON DIOXIDE 18 mmol/L (22-29); CHLORIDE 95 mmol/L (98-107); CREATINE KINASE 251 IU/L (30-200); CREATININE, SERUM 4.18 mg/dL (0.72-1.25); EST GLOMERULAR FILTRATION RATE 14 ML/MIN (60-); SODIUM 127 mmol/L (136-145)
[2020-12-25 19:25] LABS: GLUCOSE 746 mg/dL (74-118); POTASSIUM 5.2 mmol/L (3.5-5.1)
[2020-12-25] MEDS: PIPER-TAZ 3.375 GM 50 ML IV SCH (19:57)
[2020-12-25] MEDS ORDERED: INSULIN REGULAR, HUMAN 100 UNIT/1 ML 3ML VIAL IV STA (20:07)
[2020-12-25] MEDS ORDERED: INSULIN REGULAR, HUMAN 100 UNIT/1 ML 3ML VIAL IV ONE (20:15)
[2020-12-25 21:16] LABS: COLOR,URINE YELLOW (YELLOW)
[2020-12-25 21:17] LABS: KETONES,URINE NEGATIVE (NEGATIVE); LEUKOCYTE ESTERASE ,URINE NEGATIVE (NEGATIVE); NITRITE,URINE POSITIVE (NEGATIVE); PROTEIN,URINE DIPSTICK >=300 (NEGATIVE); URINE UROBILINOGEN 0.2 mg/dL (0.2 - 1)
[2020-12-25 21:18] LABS: CLARITY,URINE SL CLOUDY (CLEAR)
[2020-12-25 21:24] LABS: BACTERIA,URINE RARE /HPF
[2020-12-25] MEDS ORDERED: ONDANSETRON HCL INJ 2MG/ML 2ML 2 MG/ML VIAL IV PRN (22:00)
[2020-12-25 22:05] LABS: ABG HCO3 22 mmol/L (22-26); ABG PCO2 40 mmHg (35-45); ABG PH 7.35 (7.35-7.45); ABG PO2 69 mmHg (80-105); ABG TCO2 23
[2020-12-25] MEDS ORDERED: HYDROCODONE/APAP 5MG-325MG TAB PO PRN ×2 (22:15→22:30)
[2020-12-25] MEDS ORDERED: DEXTROSE 50% SYRINGE 50 ML IV PRN (23:15)
[2020-12-25 23:32] VITALS: BP_SYST 124; BP_SYST 130; BP_DIAS 61; BP_DIAS 86
[2020-12-25 23:50] VITALS: BP 124/61
[2020-12-26] VITALS (8 sets, daily range): BP systolic 124–145; BP diastolic 53–73
[2020-12-26] MEDS ORDERED: SODIUM CHLORIDE 0.9% 250ML 250 ML ONE (00:19)
[2020-12-26] MEDS: PIPER-TAZ 3.375 GM 50 ML IV SCH ×2 (00:30→05:47)
[2020-12-26 00:46] LABS: ALBUMIN/GLOBULIN RATIO 0.5 (0.8-2.0); ANION GAP 14.5 mmol/L (8-16); CALCIUM 8.2 mg/dL (8.4-10.2); CREATININE, SERUM 4.12 mg/dL (0.72-1.25); POTASSIUM 4.5 mmol/L (3.5-5.1)
[2020-12-26] MEDS ORDERED: SODIUM CHLORIDE 0.9% 1000ML 1,000 ML IV ONE (01:00)
[2020-12-26] MEDS ORDERED: INSULIN REGULAR, HUMAN 100 UNIT/1 ML 3ML VIAL SQ ONE ×2 (01:30→06:30)
[2020-12-26] MEDS ORDERED: RISPERIDONE0.5 MG PO (04:09)
[2020-12-26] MEDS ORDERED: MUCINEX600 MG PO (04:09)
[2020-12-26] MEDS ORDERED: LEVOFLOXACIN250 MG PO (04:13)
[2020-12-26] MEDS ORDERED: AZO URINARY P99.5 MG (04:13)
[2020-12-26 05:29] LABS: BASOPHILS # (AUTO) 0.1 (0.0-0.1); BASOPHILS % 0.5 % (0.0-1.0); EOSINOPHILS # (AUTO) 0.1 (0.0-0.4); EOSINOPHILS % 0.8 % (0.0-6.0); HEMOGLOBIN 10.4 g/dL (14.0-18.0); LYMPHOCYTES # (AUTO) 0.9 (1.0-3.2); LYMPHOCYTES % 5.1 % (18.0-39.1); MEAN CORPUSCULAR HEMOGLOBIN 34.4 pg (28-32); MEAN CORPUSCULAR HGB CONC 33.5 g/dL (31-35); MEAN CORPUSCULAR VOLUME 102.6 fL (81-99); MONOCYTES # (AUTO) 1.3 (0.2-0.8); MONOCYTES % 7.5 % (4.4-11.3); NEUTROPHILS # (AUTO) 14.1 (2.1-6.9); NEUTROPHILS % 84.4 % (38.7-80.0); PLATELET COUNT 129 x10e3/uL (140-360); RED BLOOD COUNT 3.02 x10e6/uL (4.3-5.7); RED CELL DISTRIBUTION WIDTH 12.7 % (11.7-14.4)
[2020-12-26 05:50] LABS: ALBUMIN 1.9 g/dL (3.5-5.0); ALBUMIN/GLOBULIN RATIO 0.4 (0.8-2.0); CALCIUM 8.2 mg/dL (8.4-10.2); CREATININE, SERUM 3.91 mg/dL (0.72-1.25)
[2020-12-26 06:22] LABS: CREATINE KINASE MB 0.5 ng/mL (0-5.0)
[2020-12-26] MEDS: INSULIN REGULAR, HUMAN 100 UNIT/1 ML 3ML VIAL SQ SCH ×2 (08:15→11:36)
[2020-12-26] MEDS ORDERED: DEXTROSE 50% SYRINGE 50 ML IV PRN (12:30)
[2020-12-26] MEDS ORDERED: ACETAMINOPHEN 325 MG TAB PO PRN (12:30)
[2020-12-26] MEDS: ALBUTEROL/IPRATROPIUM 3 ML NEB NEB SCH ×2 (13:00→19:06)
[2020-12-26] MEDS: SODIUM BICARBONATE 8.4% 150 ML in SODIUM CHLORIDE 0.45% 1,000 ML IV SCH (13:40)
[2020-12-26] MEDS: GUAIFENESIN 600 MG TAB PO SCH ×2 (14:12→21:10)
[2020-12-26 14:45] LABS: FREE T4 (FREE THYROXINE) 0.94 ng/dL (0.8-1.8); THYROID STIMULATING HORMONE 2.61 uIU/mL (0.350-4.940)
[2020-12-26 14:54] LABS: CREATINE KINASE MB 0.4 ng/mL (0-5.0)
[2020-12-26] MEDS ORDERED: INSULIN LISPRO 100 UNIT/1 ML 3ML VIAL SQ SCH (16:30)
[2020-12-26] MEDS: INSULIN LISPRO 100 UNIT/1 ML 3ML VIAL SQ SCH ×2 (16:45)
[2020-12-26] MEDS: ALPRAZOLAM 0.25 MG TAB PO SCH (16:46)
[2020-12-26] MEDS: RISPERIDONE 0.5 MG TAB PO SCH (16:46)
[2020-12-26] MEDS: PIPERACILLIN/TAZO 2.25 GM 50 ML IV SCH (16:46)
[2020-12-26] MEDS: BUDESONIDE 0.25 MG/2 ML NEB NEB SCH (19:16)
[2020-12-26] MEDS ORDERED: INSULIN GLARGINE 100 UNITS/ML VIAL SQ SCH (21:00)
[2020-12-27] VITALS (7 sets, daily range): BP systolic 131–163; BP diastolic 56–73
[2020-12-27] MEDS: ALBUTEROL/IPRATROPIUM 3 ML NEB NEB SCH ×5 (01:00→23:14)
[2020-12-27] MEDS: INSULIN LISPRO 100 UNIT/1 ML 3ML VIAL SQ SCH ×8 (01:00→21:00)
[2020-12-27] MEDS: PIPERACILLIN/TAZO 2.25 GM 50 ML IV SCH ×2 (05:51→17:50)
[2020-12-27] MEDS: BUDESONIDE 0.25 MG/2 ML NEB NEB SCH ×2 (06:39→18:50)
[2020-12-27 07:18] LABS: FERRITIN 391.24 ng/mL (21.81-274.66)
[2020-12-27 07:36] LABS: ANION GAP 15.3 mmol/L (8-16); CALCIUM 8.3 mg/dL (8.4-10.2); CREATININE, SERUM 3.88 mg/dL (0.72-1.25); POTASSIUM 4.3 mmol/L (3.5-5.1)
[2020-12-27] MEDS: RISPERIDONE 0.5 MG TAB PO SCH ×2 (09:00→16:35)
[2020-12-27] MEDS: GUAIFENESIN 600 MG TAB PO SCH ×2 (09:00→21:05)
[2020-12-27] MEDS: AMLODIPINE BESYLATE 5 MG TAB PO SCH (09:00)
[2020-12-27] MEDS: SERTRALINE HCL 50 MG TAB PO SCH (09:00)
[2020-12-27] MEDS: ALPRAZOLAM 0.25 MG TAB PO SCH ×2 (09:00→16:35)
[2020-12-27] MEDS: SODIUM BICARBONATE 8.4% 150 ML in SODIUM CHLORIDE 0.45% 1,000 ML IV SCH (12:00)
[2020-12-27] MEDS: INSULIN GLARGINE 100 UNITS/ML VIAL SQ SCH (21:00)
[2020-12-28] VITALS (7 sets, daily range): BP systolic 146–171; BP diastolic 69–80
[2020-12-28] MEDS: PIPERACILLIN/TAZO 2.25 GM 50 ML IV SCH (05:55)
[2020-12-28 06:22] LABS: BASOPHILS # (AUTO) 0.1 (0.0-0.1); BASOPHILS % 0.5 % (0.0-1.0); EOSINOPHILS # (AUTO) 0.3 (0.0-0.4); EOSINOPHILS % 2.5 % (0.0-6.0); LYMPHOCYTES # (AUTO) 1.2 (1.0-3.2); LYMPHOCYTES % 11.8 % (18.0-39.1); MEAN CORPUSCULAR HEMOGLOBIN 33.4 pg (28-32); MEAN CORPUSCULAR HGB CONC 33.3 g/dL (31-35); MEAN CORPUSCULAR VOLUME 100.3 fL (81-99); MONOCYTES # (AUTO) 0.7 (0.2-0.8); MONOCYTES % 6.8 % (4.4-11.3); NEUTROPHILS # (AUTO) 7.7 (2.1-6.9); NEUTROPHILS % 73.8 % (38.7-80.0); PLATELET COUNT 189 x10e3/uL (140-360); RED BLOOD COUNT 3.29 x10e6/uL (4.3-5.7); RED CELL DISTRIBUTION WIDTH 12.9 % (11.7-14.4)
[2020-12-28 06:49] LABS: ANION GAP 17.3 mmol/L (8-16); CALCIUM 8.5 mg/dL (8.4-10.2); CREATININE, SERUM 3.55 mg/dL (0.72-1.25); POTASSIUM 4.3 mmol/L (3.5-5.1)
[2020-12-28] MEDS: INSULIN LISPRO 100 UNIT/1 ML 3ML VIAL SQ SCH ×7 (07:30→21:31)
[2020-12-28] MEDS: ALBUTEROL/IPRATROPIUM 3 ML NEB NEB SCH ×3 (07:32→13:54)
[2020-12-28] MEDS: BUDESONIDE 0.25 MG/2 ML NEB NEB SCH ×2 (07:32→21:03)
[2020-12-28] MEDS: GUAIFENESIN 600 MG TAB PO SCH ×2 (09:00→21:18)
[2020-12-28] MEDS: RISPERIDONE 0.5 MG TAB PO SCH ×2 (09:00→17:00)
[2020-12-28] MEDS: SERTRALINE HCL 50 MG TAB PO SCH (09:00)
[2020-12-28] MEDS: ALPRAZOLAM 0.25 MG TAB PO SCH ×2 (09:00→17:00)
[2020-12-28] MEDS: AMLODIPINE BESYLATE 5 MG TAB PO SCH (09:00)
[2020-12-28] MEDS: MEROPENEM 500MG/ NS 50ML 50 ML IV SCH (11:30)
[2020-12-28] MEDS: INSULIN GLARGINE 100 UNITS/ML VIAL SQ SCH (21:32)
[2020-12-29] VITALS (7 sets, daily range): BP systolic 131–171; BP diastolic 60–100
[2020-12-29] MEDS: ALBUTEROL/IPRATROPIUM 3 ML NEB NEB SCH ×4 (00:23→19:05)
[2020-12-29] MEDS: INSULIN LISPRO 100 UNIT/1 ML 3ML VIAL SQ SCH ×7 (07:30→21:24)
[2020-12-29] MEDS: BUDESONIDE 0.25 MG/2 ML NEB NEB SCH ×2 (07:32→19:05)
[2020-12-29 07:39] LABS: CALCIUM 8.5 mg/dL (8.4-10.2); CREATININE, SERUM 3.3 mg/dL (0.72-1.25); MAGNESIUM 2.2 MG/DL (1.3-2.1); PHOSPHORUS 4.1 MG/DL (2.3-4.7)
[2020-12-29] MEDS: GUAIFENESIN 600 MG TAB PO SCH ×2 (09:00→21:24)
[2020-12-29] MEDS: AMLODIPINE BESYLATE 5 MG TAB PO SCH (09:00)
[2020-12-29] MEDS: ALPRAZOLAM 0.25 MG TAB PO SCH ×2 (09:00→16:31)
[2020-12-29] MEDS: RISPERIDONE 0.5 MG TAB PO SCH ×2 (09:00→16:31)
[2020-12-29] MEDS: SODIUM BICARBONATE 650 MG TAB PO SCH (09:00)
[2020-12-29] MEDS: FUROSEMIDE INJ 10 MG/ML 4 ML VIAL IV SCH (09:00)
[2020-12-29] MEDS: MEROPENEM 500MG/ NS 50ML 50 ML IV SCH (09:00)
[2020-12-29] MEDS: SERTRALINE HCL 50 MG TAB PO SCH (09:00)
[2020-12-29] MEDS: INSULIN GLARGINE 100 UNITS/ML VIAL SQ SCH (21:25)
[2020-12-30] VITALS (8 sets, daily range): BP systolic 119–170; BP diastolic 49–73
[2020-12-30] MEDS: ALBUTEROL/IPRATROPIUM 3 ML NEB NEB SCH ×4 (01:00→19:16)
[2020-12-30 05:49] LABS: ANION GAP 16.2 mmol/L (8-16); CALCIUM 8.3 mg/dL (8.4-10.2); CREATININE, SERUM 3.18 mg/dL (0.72-1.25); MAGNESIUM 2.2 MG/DL (1.3-2.1); PHOSPHORUS 4.6 MG/DL (2.3-4.7); POTASSIUM 4.2 mmol/L (3.5-5.1)
[2020-12-30] MEDS: BUDESONIDE 0.25 MG/2 ML NEB NEB SCH ×2 (07:05→19:16)
[2020-12-30] MEDS: INSULIN LISPRO 100 UNIT/1 ML 3ML VIAL SQ SCH ×7 (07:30→21:00)
[2020-12-30] MEDS ORDERED: ONDANSETRON HCL 4 MG ORAL DISINTEGRATING TAB PO PRN ×2 (08:00)
[2020-12-30] MEDS: SODIUM BICARBONATE 650 MG TAB PO SCH (09:00)
[2020-12-30] MEDS ORDERED: CHLORTHALIDONE 25 MG TAB PO SCH (09:00)
[2020-12-30] MEDS: AMLODIPINE BESYLATE 5 MG TAB PO SCH (09:18)
[2020-12-30] MEDS: RISPERIDONE 0.5 MG TAB PO SCH ×2 (09:18→18:23)
[2020-12-30] MEDS: ALPRAZOLAM 0.25 MG TAB PO SCH ×2 (09:18→18:24)
[2020-12-30] MEDS: GUAIFENESIN 600 MG TAB PO SCH ×2 (09:18→21:00)
[2020-12-30] MEDS: SERTRALINE HCL 50 MG TAB PO SCH (09:19)
[2020-12-30] MEDS: FUROSEMIDE INJ 10 MG/ML 4 ML VIAL IV SCH (09:24)
[2020-12-30] MEDS: MEROPENEM 500MG/ NS 50ML 50 ML IV SCH (09:29)
[2020-12-30] MEDS: DEXTROSE 5% 1,000 ML IV SCH (15:19)
[2020-12-30] MEDS ORDERED: HYDRALAZINE HCL 20 MG/ML VIAL IV STA (18:33)
[2020-12-30] MEDS: INSULIN GLARGINE 100 UNITS/ML VIAL SQ SCH (21:00)
[2020-12-31] VITALS (7 sets, daily range): BP systolic 140–166; BP diastolic 67–85
[2020-12-31] MEDS: ALBUTEROL/IPRATROPIUM 3 ML NEB NEB SCH ×3 (00:26→13:00)
[2020-12-31] MEDS: DEXTROSE 5% 1,000 ML IV SCH ×2 (02:44→11:59)
[2020-12-31 05:29] LABS: BASOPHILS % 0.5 % (0.0-1.0); EOSINOPHILS # (AUTO) 0.2 (0.0-0.4); EOSINOPHILS % 2.2 % (0.0-6.0); HEMATOCRIT 35.7 % (38.2-49.6); HEMOGLOBIN 11.5 g/dL (14.0-18.0); LYMPHOCYTES # (AUTO) 1.5 (1.0-3.2); LYMPHOCYTES % 17.2 % (18.0-39.1); MEAN CORPUSCULAR HEMOGLOBIN 33.1 pg (28-32); MEAN CORPUSCULAR HGB CONC 32.2 g/dL (31-35); MEAN CORPUSCULAR VOLUME 102.9 fL (81-99); MONOCYTES # (AUTO) 0.4 (0.2-0.8); MONOCYTES % 4.6 % (4.4-11.3); NEUTROPHILS # (AUTO) 5.9 (2.1-6.9); NEUTROPHILS % 70.1 % (38.7-80.0); PLATELET COUNT 248 x10e3/uL (140-360); RED BLOOD COUNT 3.47 x10e6/uL (4.3-5.7); RED CELL DISTRIBUTION WIDTH 12.5 % (11.7-14.4)
[2020-12-31 05:57] LABS: ANION GAP 14.8 mmol/L (8-16); CALCIUM 7.9 mg/dL (8.4-10.2); CREATININE, SERUM 3.13 mg/dL (0.72-1.25); POTASSIUM 3.8 mmol/L (3.5-5.1)
[2020-12-31] MEDS: BUDESONIDE 0.25 MG/2 ML NEB NEB SCH (07:00)
[2020-12-31] MEDS: INSULIN LISPRO 100 UNIT/1 ML 3ML VIAL SQ SCH ×6 (07:30→16:30)
[2020-12-31] MEDS: MEROPENEM 500MG/ NS 50ML 50 ML IV SCH (09:21)
[2020-12-31] MEDS: ALPRAZOLAM 0.25 MG TAB PO SCH ×2 (09:21→16:04)
[2020-12-31] MEDS: RISPERIDONE 0.5 MG TAB PO SCH ×2 (09:21→16:04)
[2020-12-31] MEDS: GUAIFENESIN 600 MG TAB PO SCH (09:21)
[2020-12-31] MEDS: AMLODIPINE BESYLATE 5 MG TAB PO SCH (09:21)
[2020-12-31] MEDS: SERTRALINE HCL 50 MG TAB PO SCH (09:21)
== END 2020-12-31 17:50 | DRG 871 ==
LOC: ER 18:34 → ERHOLD 22:03 → MED/SURG2 23:05
PROVIDERS: ADMIT Internal Medicine; ATTEND Internal Medicine
DX: A41.51 Sepsis due to Escherichia coli [E. coli] (principal); E11.10 Type 2 diabetes mellitus with ketoacidosis without coma; N17.0 Acute kidney failure with tubular necrosis; N39.0 Urinary tract infection, site not specified; I69.351 Hemiplegia and hemiparesis following cerebral infarction affecting right dominant side; I13.0 Hypertensive heart and chronic kidney disease with heart failure and stage 1 through stage 4 chronic kidney disease, or unspecified chronic kidney disease; N30.41 Irradiation cystitis with hematuria; E87.2 Acidosis; E87.1 Hypo-osmolality and hyponatremia; Z16.12 Extended spectrum beta lactamase (ESBL) resistance; N18.4 Chronic kidney disease, stage 4 (severe); R65.20 Severe sepsis without septic shock; I50.9 Heart failure, unspecified; E03.9 Hypothyroidism, unspecified; F01.50 Vascular dementia, unspecified severity, without behavioral disturbance, psychotic disturbance, mood disturbance, and anxiety; J44.9 Chronic obstructive pulmonary disease, unspecified; I69.919 Unspecified symptoms and signs involving cognitive functions following unspecified cerebrovascular disease; G47.33 Obstructive sleep apnea (adult) (pediatric); I25.10 Atherosclerotic heart disease of native coronary artery without angina pectoris; Z20.822 Contact with and (suspected) exposure to COVID-19; D63.0 Anemia in neoplastic disease; D63.1 Anemia in chronic kidney disease; C61 Malignant neoplasm of prostate
CPT/HCPCS: 36415; 36600; 71045; 71250; 74176; 80048; 80053; 81001; 82550; 82553; 82728; 82805; 82948; 83036; 83540; 83605; 83735; 83880; 84100; 84439; 84443; 84466; 84484; 85025; 87040; 87071; 87086; 87186; 87205; 93005; 94640; 97139; 99251; 99285; J1815; J1817; J1940; J2543; J7030; J7050; J7070; U0002

== ENCOUNTER 2021-03-08 12:02 | Inpatient (IN) | payer MEDICARE, OTHER ==
[~2021-03-08] VITALS: Ht 175.3 cm; Wt 112.0 kg
[~2021-03-08 12:02] MED LIST changes: +AZO URINARY P99.5 MG; +LEVOFLOXACIN250 MG PO; +MUCINEX600 MG PO; +RISPERIDONE0.5 MG PO
[2021-03-08] MEDS ORDERED: CALCIUM GLUCONATE 10% INJ 4.65 MEQ in SODIUM CHLORIDE 0.9% 50ML 50 ML IV ONE (12:25)
[2021-03-08] MEDS ORDERED: GLUCAGON FOR INJ 1 MG VIAL IV STA (12:25)
[2021-03-08 13:09] LABS: BASOPHILS % 0.4 % (0.0-1.0); EOSINOPHILS # (AUTO) 0.4 (0.0-0.4); HEMATOCRIT 38.9 % (38.2-49.6); HEMOGLOBIN 13.4 g/dL (14.0-18.0); LYMPHOCYTES # (AUTO) 2.1 (1.0-3.2); LYMPHOCYTES % 28.3 % (18.0-39.1); MEAN CORPUSCULAR HEMOGLOBIN 33.6 pg (28-32); MEAN CORPUSCULAR HGB CONC 34.4 g/dL (31-35); MEAN CORPUSCULAR VOLUME 97.5 fL (81-99); MONOCYTES # (AUTO) 0.6 (0.2-0.8); MONOCYTES % 7.8 % (4.4-11.3); NEUTROPHILS # (AUTO) 4.3 (2.1-6.9); NEUTROPHILS % 58.1 % (38.7-80.0); PLATELET COUNT 199 x10e3/uL (140-360); RED BLOOD COUNT 3.99 x10e6/uL (4.3-5.7); RED CELL DISTRIBUTION WIDTH 12.5 % (11.7-14.4)
[2021-03-08 13:19] LABS: ALBUMIN 3.7 g/dL (3.5-5.0); ALBUMIN/GLOBULIN RATIO 0.7 (0.8-2.0); ANION GAP 17.2 mmol/L (8-16); CALCIUM 9.2 mg/dL (8.4-10.2); CREATININE, SERUM 2.71 mg/dL (0.72-1.25); POTASSIUM 4.2 mmol/L (3.5-5.1)
[2021-03-08 13:28] LABS: CREATINE KINASE MB 0.5 ng/mL (0-5.0)
[2021-03-08] MEDS ORDERED: ASPIRIN 81 MG CHEW TAB PO ONE (14:30)
[2021-03-08] MEDS: SODIUM CHLORIDE 0.9% 1000ML 1,000 ML IV SCH ×2 (15:30→22:58)
[2021-03-08 16:08] VITALS: BP 153/63
[2021-03-08 16:27] VITALS: BP 153/63
[2021-03-08 16:37] VITALS: BP 153/63
[2021-03-08] MEDS ORDERED: NAMENDA10 MG PO (17:04)
[2021-03-08] MEDS ORDERED: PLAVIX75 MG PO (17:04)
[2021-03-08] MEDS ORDERED: VITAMIN B-121000 MCG PO (17:04)
[2021-03-08] MEDS ORDERED: IPRATROPIUM BROMIDE 0.02% 2.5 ML NEB INH SCH (19:15)
[2021-03-08 20:00] VITALS: BP 137/71
[2021-03-08] MEDS ORDERED: MELATONIN 5 MG TABLET PO PRN (21:45)
[2021-03-08] MEDS ORDERED: ACETAMINOPHEN 325 MG TAB PO PRN (21:45)
[2021-03-08] MEDS ORDERED: DIPHENHYDRAMINE HCL 25 MG CAP PO PRN (21:45)
[2021-03-08] MEDS ORDERED: BENZONATATE 100 MG CAP PO PRN (21:45)
[2021-03-08] MEDS ORDERED: ALBUTEROL/IPRATROPIUM 3 ML NEB NEB PRN (21:45)
[2021-03-08] MEDS ORDERED: DOCUSATE SODIUM 100 MG CAP PO PRN (21:45)
[2021-03-08] MEDS ORDERED: HYDRALAZINE HCL 20 MG/ML VIAL IV PRN (21:45)
[2021-03-08] MEDS ORDERED: HYDROCODONE/APAP 5MG-325MG TAB PO PRN (21:45)
[2021-03-08] MEDS ORDERED: ONDANSETRON HCL INJ 2MG/ML 2ML 2 MG/ML VIAL IV PRN (21:45)
[2021-03-08] MEDS ORDERED: DEXTROSE 50% SYRINGE 50 ML IV PRN (21:45)
[2021-03-08] MEDS ORDERED: POLYETHYLENE GLYCOL 3350 17 GM PACK PO PRN (21:45)
[2021-03-08] MEDS ORDERED: POTASSIUM CHLORIDE 20 MEQ TAB CR PO PRN (21:45)
[2021-03-08] MEDS ORDERED: ALPRAZOLAM 0.25 MG TAB PO PRN (22:00)
[2021-03-09 00:45] VITALS: BP 128/72
[2021-03-09] MEDS: SODIUM CHLORIDE 0.9% 1000ML 1,000 ML IV SCH (02:46)
[2021-03-09 05:20] VITALS: BP 129/64
[2021-03-09 05:55] LABS: BASOPHILS % 0.5 % (0.0-1.0); EOSINOPHILS # (AUTO) 0.4 (0.0-0.4); EOSINOPHILS % 5.8 % (0.0-6.0); HEMATOCRIT 34.8 % (38.2-49.6); HEMOGLOBIN 11.9 g/dL (14.0-18.0); LYMPHOCYTES # (AUTO) 1.7 (1.0-3.2); LYMPHOCYTES % 25.8 % (18.0-39.1); MEAN CORPUSCULAR HEMOGLOBIN 33.5 pg (28-32); MEAN CORPUSCULAR HGB CONC 34.2 g/dL (31-35); MONOCYTES # (AUTO) 0.5 (0.2-0.8); MONOCYTES % 7.8 % (4.4-11.3); NEUTROPHILS # (AUTO) 3.9 (2.1-6.9); NEUTROPHILS % 59.8 % (38.7-80.0); PLATELET COUNT 186 x10e3/uL (140-360); RED BLOOD COUNT 3.55 x10e6/uL (4.3-5.7); RED CELL DISTRIBUTION WIDTH 12.3 % (11.7-14.4)
[2021-03-09] MEDS ORDERED: LEVOTHYROXINE SODIUM 50 MCG TAB PO SCH (06:00)
[2021-03-09] MEDS ORDERED: LEVOTHYROXINE SODIUM 125 MCG TAB PO SCH ×2 (06:00→10:30)
[2021-03-09 06:22] LABS: CREATINE KINASE MB 0.3 ng/mL (0-5.0)
[2021-03-09 06:29] LABS: CHOL/HDL RATIO 3.4 (3.9-4.7); MAGNESIUM 2.1 MG/DL (1.3-2.1); PHOSPHORUS 3.8 MG/DL (2.3-4.7)
[2021-03-09 06:33] LABS: THYROID STIMULATING HORMONE 0.711 uIU/mL (0.350-4.940)
[2021-03-09 06:41] LABS: ALBUMIN/GLOBULIN RATIO 0.8 (0.8-2.0); ANION GAP 10.8 mmol/L (8-16); CALCIUM 8.1 mg/dL (8.4-10.2); CREATININE, SERUM 2.43 mg/dL (0.72-1.25); POTASSIUM 3.8 mmol/L (3.5-5.1)
[2021-03-09] MEDS ORDERED: PANTOPRAZOLE SOD 40 MG TABEC PO SCH (07:30)
[2021-03-09 08:48] VITALS: BP 144/69
[2021-03-09 08:55] VITALS: BP 144/69
[2021-03-09] MEDS ORDERED: CLOPIDOGREL BISULFATE 75 MG TAB PO SCH (09:00)
[2021-03-09] MEDS ORDERED: RISPERIDONE 0.5 MG TAB PO SCH (09:00)
[2021-03-09] MEDS ORDERED: DONEPEZIL HCL 5 MG TAB PO SCH (09:00)
[2021-03-09] MEDS ORDERED: SERTRALINE HCL 50 MG TAB PO SCH (09:00)
[2021-03-09] MEDS ORDERED: FUROSEMIDE INJ 10 MG/ML 4 ML VIAL IV ONE (09:15)
[2021-03-09 12:09] VITALS: BP 157/66
[2021-03-09] MEDS ORDERED: PRAVASTATIN 20 MG TAB PO SCH (17:00)
[2021-03-09] MEDS ORDERED: MEMANTINE 10 MG TAB PO SCH (21:00)
[2021-03-09] MEDS ORDERED: NAMENDA 28 MG PO SCH (21:00)
[2021-03-10] MEDS ORDERED: LEVOTHYROXINE SODIUM 50 MCG TAB PO SCH ×2 (06:00→10:30)
[2021-03-10] MEDS ORDERED: LEVOTHYROXINE SODIUM 125 MCG TAB PO SCH ×2 (06:00)
== END 2021-03-09 15:08 | disposition home or self-care (01) | DRG 309 ==
LOC: ER 12:24 → ERHOLD 14:26 → MED/SURG2 15:06
PROVIDERS: ADMIT Internal Medicine; ATTEND Internal Medicine
DX: R00.1 Bradycardia, unspecified (principal); I69.351 Hemiplegia and hemiparesis following cerebral infarction affecting right dominant side; F03.90 Unspecified dementia, unspecified severity, without behavioral disturbance, psychotic disturbance, mood disturbance, and anxiety; E03.9 Hypothyroidism, unspecified; G47.33 Obstructive sleep apnea (adult) (pediatric); I10 Essential (primary) hypertension; E78.5 Hyperlipidemia, unspecified; Z85.46 Personal history of malignant neoplasm of prostate; T44.7X5A Adverse effect of beta-adrenoreceptor antagonists, initial encounter; Z20.822 Contact with and (suspected) exposure to COVID-19
CPT/HCPCS: 36415; 71045; 80053; 80061; 82550; 82553; 82948; 83036; 83735; 83880; 84100; 84443; 84484; 85025; 93005; 93306; 94640; 99284; J0610; J1610; J1940; J7030; U0002

== ENCOUNTER 2021-04-09 13:54 | Outpatient (RCR) | payer MEDICARE, OTHER ==
[~2021-04-09 13:54] MED LIST changes: +NAMENDA10 MG PO; +PLAVIX75 MG PO; +VITAMIN B-121000 MCG PO
== END 2021-04-21 ==
LOC: WCC 13:54
PROVIDERS: ATTEND Family Medicine
DX: N30.41 Irradiation cystitis with hematuria (principal); T66.XXXA Radiation sickness, unspecified, initial encounter; Y84.8 Other medical procedures as the cause of abnormal reaction of the patient, or of later complication, without mention of misadventure at the time of the procedure; R31.0 Gross hematuria; I10 Essential (primary) hypertension; J44.9 Chronic obstructive pulmonary disease, unspecified; E78.5 Hyperlipidemia, unspecified; I69.951 Hemiplegia and hemiparesis following unspecified cerebrovascular disease affecting right dominant side; N40.0 Benign prostatic hyperplasia without lower urinary tract symptoms; E03.9 Hypothyroidism, unspecified; H91.23 Sudden idiopathic hearing loss, bilateral; Z01.810 Encounter for preprocedural cardiovascular examination; Z01.811 Encounter for preprocedural respiratory examination; Z85.46 Personal history of malignant neoplasm of prostate

== ENCOUNTER → 2021-04-15 | Outpatient (CLI) | payer MEDICARE, OTHER | LOC: RAD 12:10 | PROVIDERS: ATTEND Family Medicine | DX: Z01.810 Encounter for preprocedural cardiovascular examination (principal); Z01.811 Encounter for preprocedural respiratory examination; N30.41 Irradiation cystitis with hematuria | CPT/HCPCS: 71046; 93005 ==

== ENCOUNTER → 2021-05-21 | Outpatient (RCR) | payer MEDICARE, OTHER | LOC: WCC 05-13 13:35 | PROVIDERS: ATTEND Family Medicine | DX: N30.41 Irradiation cystitis with hematuria (principal); T66.XXXA Radiation sickness, unspecified, initial encounter; Y84.8 Other medical procedures as the cause of abnormal reaction of the patient, or of later complication, without mention of misadventure at the time of the procedure; R31.0 Gross hematuria; N40.0 Benign prostatic hyperplasia without lower urinary tract symptoms; J44.9 Chronic obstructive pulmonary disease, unspecified; I69.951 Hemiplegia and hemiparesis following unspecified cerebrovascular disease affecting right dominant side; I10 Essential (primary) hypertension; H91.23 Sudden idiopathic hearing loss, bilateral; E78.5 Hyperlipidemia, unspecified; E03.9 Hypothyroidism, unspecified; Z01.810 Encounter for preprocedural cardiovascular examination; Z01.811 Encounter for preprocedural respiratory examination; Z85.46 Personal history of malignant neoplasm of prostate | CPT/HCPCS: 36415 ×5; 82948 ×5; G0277 ×6 ==

== ENCOUNTER 2021-05-23 10:53 | Outpatient (RCR) | payer MEDICARE, OTHER | END 2021-06-21 | LOC: WCC 10:53 | PROVIDERS: ATTEND Family Medicine | DX: N30.41 Irradiation cystitis with hematuria (principal); T66.XXXA Radiation sickness, unspecified, initial encounter; Y84.8 Other medical procedures as the cause of abnormal reaction of the patient, or of later complication, without mention of misadventure at the time of the procedure; R31.0 Gross hematuria; E03.9 Hypothyroidism, unspecified; E78.5 Hyperlipidemia, unspecified; H91.23 Sudden idiopathic hearing loss, bilateral; I10 Essential (primary) hypertension; I69.951 Hemiplegia and hemiparesis following unspecified cerebrovascular disease affecting right dominant side; J44.9 Chronic obstructive pulmonary disease, unspecified; N40.0 Benign prostatic hyperplasia without lower urinary tract symptoms; Z01.810 Encounter for preprocedural cardiovascular examination; Z01.811 Encounter for preprocedural respiratory examination; Z85.46 Personal history of malignant neoplasm of prostate | CPT/HCPCS: 36415 ×2; 82948 ×2; 99213; G0277 ×2 ==

== ENCOUNTER 2021-05-23 15:01 | Emergency (ER) | payer OTHER ==
[~2021-05-23] VITALS: Ht 170.2 cm; Wt 83.9 kg
== END 2021-05-23 15:43 | disposition home or self-care (01) ==
LOC: ER 15:15
DX: I10 Essential (primary) hypertension (principal); E78.5 Hyperlipidemia, unspecified; I25.10 Atherosclerotic heart disease of native coronary artery without angina pectoris; F41.9 Anxiety disorder, unspecified; Z86.73 Personal history of transient ischemic attack (TIA), and cerebral infarction without residual deficits; Z85.46 Personal history of malignant neoplasm of prostate
CPT/HCPCS: 99282

== ENCOUNTER 2021-07-22 20:00 | Emergency (ER) | payer MEDICARE, OTHER ==
[~2021-07-22] VITALS: Ht 175.3 cm; Wt 105.2 kg
[2021-07-22] MEDS ORDERED: CEFDINIR300 MG PO (22:49)
[2021-07-22 22:56] VITALS: BP 123/55
== END 2021-07-22 22:56 | disposition home or self-care (01) ==
LOC: FSED 20:17
DX: N30.01 Acute cystitis with hematuria (principal); N28.9 Disorder of kidney and ureter, unspecified; I10 Essential (primary) hypertension; E78.5 Hyperlipidemia, unspecified; K21.9 Gastro-esophageal reflux disease without esophagitis; I25.10 Atherosclerotic heart disease of native coronary artery without angina pectoris; Z86.73 Personal history of transient ischemic attack (TIA), and cerebral infarction without residual deficits; Z85.46 Personal history of malignant neoplasm of prostate
CPT/HCPCS: 74176; 80053; 85025; 99283

== ENCOUNTER → 2021-07-25 | Outpatient (CLI) | payer MEDICARE, OTHER ==
[~2021-07-25] MED LIST changes: +CEFDINIR300 MG PO
== END ==
LOC: DX 10:16
PROVIDERS: ATTEND Internal Medicine
DX: R13.10 Dysphagia, unspecified (principal); K11.7 Disturbances of salivary secretion
CPT/HCPCS: 74230; 92526; 92611; U0002

== ENCOUNTER 2024-10-31 12:29 | Emergency (ER) | payer MEDICARE ==
[~2024-10-31] VITALS: Ht 175.3 cm; Wt 105.7 kg
[2024-10-31] MEDS ORDERED: HYDRALAZINE HCL25 MG PO (13:10)
[2024-10-31] MEDS ORDERED: ROPINIROLE HCL0.5 MG (13:10)
[2024-10-31] MEDS ORDERED: PULMICORT2 M1 (13:10)
[2024-10-31] MEDS ORDERED: CLOPIDOGREL75 MG PO (13:10)
[2024-10-31] MEDS ORDERED: BUDESONIDE0.5 MG/2 M NEB (13:10)
[2024-10-31] MEDS ORDERED: TUSSIN DM LIQU118 ML (13:10)
[2024-10-31] MEDS ORDERED: MUCINEX DM ER1 EACH PO (13:10)
[2024-10-31] MEDS ORDERED: VITAMIN D250 MC1 (13:10)
[2024-10-31] MEDS ORDERED: MAGNESIUM OXID400 MG PO (13:10)
[2024-10-31] MEDS ORDERED: CALCITRIOL0.5 MCG PO (13:10)
[2024-10-31] MEDS ORDERED: SELENIUM200 MC1 (13:10)
[2024-10-31] MEDS: BACITRACIN ZINC 0.9GM TP ONE (13:12)
[2024-10-31 15:04] VITALS: PULSE 74; RESP 16; TEMP 98.3; O2SAT 98
== END 2024-10-31 15:16 | disposition home or self-care (01) ==
LOC: FSED 12:35
DX: S01.81XA Laceration without foreign body of other part of head, initial encounter (principal); W05.0XXA Fall from non-moving wheelchair, initial encounter; Y92.89 Other specified places as the place of occurrence of the external cause; N19 Unspecified kidney failure; I10 Essential (primary) hypertension; E11.9 Type 2 diabetes mellitus without complications; E03.9 Hypothyroidism, unspecified; I25.10 Atherosclerotic heart disease of native coronary artery without angina pectoris; D64.9 Anemia, unspecified; E78.5 Hyperlipidemia, unspecified; K21.9 Gastro-esophageal reflux disease without esophagitis; F41.9 Anxiety disorder, unspecified; F32.A Depression, unspecified; E66.9 Obesity, unspecified; Z85.46 Personal history of malignant neoplasm of prostate; I25.2 Old myocardial infarction; Z86.73 Personal history of transient ischemic attack (TIA), and cerebral infarction without residual deficits
CPT/HCPCS: 70450; 72125; 99284

== ENCOUNTER 2024-11-02 12:57 | Emergency (ER) | payer MEDICARE ==
[~2024-11-02] VITALS: Ht 175.3 cm; Wt 96.6 kg
[~2024-11-02 12:57] MED LIST changes: +CALCITRIOL0.5 MCG PO; +CLOPIDOGREL75 MG PO; +HYDRALAZINE HCL25 MG PO; +MAGNESIUM OXID400 MG PO; +MUCINEX DM ER1 EACH PO; +PULMICORT2 M1; +ROPINIROLE HCL0.5 MG; +SELENIUM200 MC1; +TUSSIN DM LIQU118 ML; +VITAMIN D250 MC1
[2024-11-02 13:50] VITALS: TEMP 97.5
[2024-11-02 14:54] LABS: BASOPHILS % 0.1 % (0.0-1.0); EOSINOPHILS # (AUTO) 0.1 (0.0-0.4); EOSINOPHILS % 1.6 % (0.0-6.0); HEMATOCRIT 24.3 % (38.2-49.6); HEMOGLOBIN 7.4 g/dL (14.0-18.0); LYMPHOCYTES # (AUTO) 1.3 (1.0-3.2); LYMPHOCYTES % 15.1 % (18.0-39.1); MEAN CORPUSCULAR HGB CONC 30.5 g/dL (31-35); MEAN CORPUSCULAR VOLUME 108.5 fL (81-99); MONOCYTES # (AUTO) 0.9 (0.2-0.8); NEUTROPHILS # (AUTO) 5.9 (2.1-6.9); NEUTROPHILS % 71.2 % (38.7-80.0); PLATELET COUNT 242 x10e3/uL (140-360); RED BLOOD COUNT 2.24 x10e6/uL (4.3-5.7); RED CELL DISTRIBUTION WIDTH 12.4 % (11.7-14.4); WHITE BLOOD COUNT 8.27 x10e3/uL (4.8-10.8)
[2024-11-02 15:13] LABS: ALBUMIN 2.9 g/dL (3.5-5.0); ALBUMIN/GLOBULIN RATIO 0.6 (0.8-2.0); ANION GAP 19.8 mmol/L (8-16); BILIRUBIN,TOTAL 0.2 mg/dL (0.2-1.2); CALCIUM 9.9 mg/dL (8.4-10.2); CREATININE, SERUM 6.4 mg/dL (0.72-1.25); POTASSIUM 3.8 mmol/L (3.5-5.1); TOTAL PROTEIN 7.8 g/dL (6.5-8.1)
[2024-11-02 16:10] VITALS: PULSE 80; RESP 18; O2SAT 99
== END 2024-11-02 17:03 | disposition home or self-care (01) ==
LOC: ER 13:06
DX: G30.9 Alzheimer's disease, unspecified (principal); F02.80 Dementia in other diseases classified elsewhere, unspecified severity, without behavioral disturbance, psychotic disturbance, mood disturbance, and anxiety; I12.9 Hypertensive chronic kidney disease with stage 1 through stage 4 chronic kidney disease, or unspecified chronic kidney disease; E11.22 Type 2 diabetes mellitus with diabetic chronic kidney disease; N18.9 Chronic kidney disease, unspecified; J44.9 Chronic obstructive pulmonary disease, unspecified; E03.9 Hypothyroidism, unspecified; I25.10 Atherosclerotic heart disease of native coronary artery without angina pectoris; E78.5 Hyperlipidemia, unspecified; G47.33 Obstructive sleep apnea (adult) (pediatric); R94.31 Abnormal electrocardiogram [ECG] [EKG]; I25.2 Old myocardial infarction; Z85.46 Personal history of malignant neoplasm of prostate; Z86.73 Personal history of transient ischemic attack (TIA), and cerebral infarction without residual deficits
CPT/HCPCS: 36415; 70450; 71045; 80053; 83880; 84484; 85025; 93005; 99283